=== PATIENT | male | born 1995 | race Caucasian/White ===

== ENCOUNTER 2016-11-26 18:37 | Emergency (ER) | payer OTHER ==
[~2016-11-26] VITALS: Ht 182.9 cm; Wt 89.8 kg
== END 2016-11-26 19:21 | disposition home or self-care (01) ==
LOC: ED 18:37
DX: Z20.2 Contact with and (suspected) exposure to infections with a predominantly sexual mode of transmission (principal); F41.9 Anxiety disorder, unspecified; F17.200 Nicotine dependence, unspecified, uncomplicated
CPT/HCPCS: 87491; 87591; 99283

== ENCOUNTER 2017-02-26 00:06 | Inpatient (IN) | payer OTHER ==
[~2017-02-26] VITALS: Ht 182.9 cm; Wt 88.1 kg
--- NOTE | 2017-02-26 21:25 | HP ---
[facility] [address], [place] [address] Signed ADMISSION DATE: 02/26/2017 REASON FOR ADMISSION: Acute appendicitis. 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 Yesterday morning, he began having vague abdominal pain, which worsened migrating to the right lower abdomen. By the end of the evening last night when getting ready to "close down," his pain became unbearable and on that basis, he left work and presented to the emergency room, where he was evaluated by Dr. Levine. He was found to have tenderness in the right lower abdomen and an elevated white count of 14.2, and findings highly consistent with appendicitis. I was called by Dr. Levine about this and we conferred and he ultimately underwent a CT scan of the abdomen, which confirmed acute appendicitis. He was admitted for further evaluation and care. PAST MEDICAL HISTORY: Unremarkable. He has never had operation in the past. He takes no medications daily. He has no known drug allergies. FAMILY HISTORY: Notable for a younger brother who had appendicitis, which was perforated and ultimately required transfer from [place] to [place], [place] for further management. He notes that his brother was far more ill than he is at present. 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 He lives on [address] in [place]. He is unmarried. His point of contact is his father, Alfonso Quintanilla. REVIEW OF SYSTEMS: He denies any shortness of breath or chest pain. He has had no dysphagia, dysuria. Denies any hematemesis or blood per rectum. PHYSICAL EXAMINATION: GENERAL: A robust appearing man who looks to be nontoxic. Trachea is midline. Mucous membranes are slightly dry. CHEST: Clear. HEART: Regular without murmur. Electronically Signed By: YVAN LYNN MD 02/26/17 0582 PATIENT NAME: THADDEUS QUINTANILLA HISTORY AND PHYSICAL DATE OF : [birth year] PHYSICIAN: YVAN LYNN MD REPORT #: [id number] REPORT IS CONFIDENTIAL AND NOT TO BE RELEASED WITHOUT AUTHORIZATION [facility] [address], [place] [address] Signed ABDOMEN: Nondistended and soft. Rovsing sign is negative. There is tenderness in McBurney point. EXTREMITIES: Show no clubbing, cyanosis, or edema. LABORATORY STUDY: Show white count of 14.2, hematocrit 44.2, and platelets 278,000. Chem profile shows a potassium of 3.5. Liver enzymes normal. Lipase 13. Urinalysis shows specific gravity of 1.033, otherwise normal. I reviewed the CT scan myself. The coronal view is most demonstrative of appendicitis. ASSESSMENT: The patient has acute appendicitis, not apparently perforated. He needs additional fluid resuscitation and appendectomy. We discussed nonoperative methods, which I would not recommend. The risks of bleeding, infection, need for drain, need for possible open procedure. All reviewed in detail. He understands and wished to proceed. We will plan to do this today. MD DEDE Doss/KRISHANL /[id number] cc: Stephanie Levine MD Electronically Signed By: YVAN LYNN MD 02/26/17 2125 PATIENT NAME: THADDEUS QUINTANILLA HISTORY AND PHYSICAL DATE OF : [birth year] PHYSICIAN: VYAN LYNN MD REPORT #: [id number] REPORT IS CONFIDENTIAL AND NOT TO BE RELEASED WITHOUT AUTHORIZATION
--- NOTE | 2017-02-26 21:25 | OR ---
[facility] [address], [place] [address] Signed DATE OF OPERATION: 02/26/2017 SURGEON: Yvan Lynn MD PREOPERATIVE DIAGNOSIS: Acute appendicitis. POSTOPERATIVE DIAGNOSIS: Acute suppurative appendicitis. PROCEDURE: Laparoscopic appendectomy. ANESTHESIA: General endotracheal, Yvan Hull CRNA and local 10 mL of 0.25% Marcaine with epinephrine. INDICATION: This 21-year-old white man began having lower abdominal pain yesterday at approximately 8 in the morning. This progressed until his presentation in the emergency room last night. He was evaluated by Dr. Levine and thought to have appendicitis. A CT scan of the abdomen confirmed this finding. No sign of abscess or perforation. He has been fluid resuscitated, given intravenous antibiotics, and is at this time to undergo appendectomy preferred by a laparoscopic approach. The risks of bleeding, infection, need for open procedure, failure to cure the problem, and other unforeseen complications were reviewed in detail. He understands and wished to proceed. FINDINGS: Indeed the appendix was quite inflamed, there was a fair amount of purulent exudate, but no abscess was formed. A complete appendectomy was performed without problem. The appendix was transected and flushed to the cecum. Additionally, noted was gallbladder had some adhesions to it, but not acutely inflamed. The terminal ileum and colon appeared normal. DESCRIPTION OF PROCEDURE: The patient was brought to the operating room, given a general endotracheal anesthetic. Preoperative antibiotic Zosyn had been given previously, Ancef. Sequential compression device stockings were used and heparin subcutaneously administered. After satisfactory general endotracheal anesthesia, a Mead catheter was placed. The abdomen was clipped and prepared with chlorhexidine solution and draped sterilely. An infraumbilical Electronically Signed By: YVAN LYNN MD 02/26/17 2125 PATIENT NAME: THADDEUS QUINTANILLA OPERATIVE REPORT DATE OF : [birth year] PHYSICIAN: YVAN LYNN MD REPORT #: [id number] REPORT IS CONFIDENTIAL AND NOT TO BE RELEASED WITHOUT AUTHORIZATION [facility] [address], [place] [address] Signed incision was made and using an open John cannula technique, pneumoperitoneum was achieved at level 14 mmHg of carbon dioxide gas. Intraabdominal inspection showed no sign of ascites or carcinomatosis. The appendix was not visualized at this time. A 12 mm epigastric port was then placed and a camera was placed to that site. Single hand manipulation of the right lower abdominal contents with the assistance of table manipulation including the [id number] ultimately revealed the tip of the appendix, which was noted to be matted somewhat laterally. A 5 mm right lower quadrant trocar was placed under direct visualization allowing for 2-hand manipulation ultimately delivering well the terminal ileum and the cecum. The appendix was suppurative and inflamed. The mesoappendix was thickened. The appendix was elevated and a window created between the appendix and the mesoappendix and a window created more fully with laparoscopic device. Initially, it was planned to transect the appendix flushed with the cecum, however, a small tear in the mesoappendix allowed for arterial bleeding on that basis, it was quickly secured by grasping and the stapling device then passed through the mesoappendix, transecting it completely allowing for complete hemostasis. Then, now skeletonized appendix was transected and flushed with the cecum using an Endo-LANNY stapling device as well. Appendix was withdrawn through the infraumbilical port site and passed for pathology. Irrigation was undertaken on the staple lines of the mesoappendix and the cecum, both were hemostatic. Excess irrigation fluid was suctioned free from the upper abdomen and lower abdomen. Plans made for closure. On inspection, first, however, the terminal ileum confirmed to be normal. The liver was normal. The gallbladder had mild chronic inflammation and some adhesions to it, but not acutely inflamed at all. The trocars were removed and the infraumbilical fascial incision was reapproximated with interrupted 0 Vicryl suture. All wounds were copiously irrigated with saline solution and skin closed with interrupted 3-0 Vicryl. Steri-Strips were applied. The patient was ultimately extubated and transferred to recovery room in good condition, having suffered no complications. Sponge, needle, and counts were reported as correct x3. Yvan Lynn MD /[facility] [place] /[id number] Electronically Signed By: YVAN LYNN MD 02/26/17 2125 PATIENT NAME: THADDEUS QUINTANILLA OPERATIVE REPORT DATE OF : [birth year] PHYSICIAN: YVAN LYNN MD REPORT #: [id number] REPORT IS CONFIDENTIAL AND NOT TO BE RELEASED WITHOUT AUTHORIZATION [address] [address] Signed cc: Stephanie Levine MD Electronically Signed By: YVAN LYNN MD 02/26/17 2125 PATIENT NAME: THADDEUS QUINTANILLA OPERATIVE REPORT DATE OF : [birth year] PHYSICIAN: YVAN LYNN MD REPORT #: [id number] REPORT IS CONFIDENTIAL AND NOT TO BE RELEASED WITHOUT AUTHORIZATION
[2017-02-27] MEDS ORDERED: IBUPROFEN600 MG PO (16:06)
[2017-02-27] MEDS ORDERED: OXYCODON-ACETA1 EAC2 PO (16:07)
== END 2017-02-27 17:50 | disposition home or self-care (01) | DRG 340 ==
LOC: ED 00:06 → MS 02:25
PROVIDERS: ADMIT Surgery
PROC: 0DTJ4ZZ Resection of Appendix, Percutaneous Endoscopic Approach (ICD-10-PCS; principal; 2017-02-26 15:00)
DX: K35.2 Acute appendicitis with generalized peritonitis (principal)
CPT/HCPCS: 00840; 74177; 80053; 81001; 83690; 85025; 96361; 96372; 96374; 96375; 96376; 99285; G0378; J0330; J0690; J0694; J1100; J1170; J1644; J1885; J2250; J2405; J2543; J2704; J2710; J2765; J3010; J7030; J7120; Q9967

== ENCOUNTER 2024-11-10 09:23 | Emergency (ER) | payer BC ==
[~2024-11-10] VITALS: Ht 182.9 cm; Wt 88.0 kg
[~2024-11-10 09:23] MED LIST: IBUPROFEN600 MG PO; OXYCODON-ACETA1 EAC2 PO
--- OUTSIDE RECORDS SUMMARY | 2024-11-10 09:29 | XMS ---
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 Su has no Care Guidelines for this patient. [facility] VISIT COUNT (12 MO.) 1 SWETHA [place] TOTAL 1 NOTE: Visits indicate total known visits. ED/C VISIT TRACKING (12 MO.) 11/10/2024 09:23 SWETHA [place] TYPE: Emergency COMPLAINT: - BACK PAIN INPATIENT VISIT TRACKING (12 MO.) No inpatient visits to display in this time frame [email or web address]
[2024-11-10 10:00] VITALS: BP 126/71
== END 2024-11-10 10:02 | disposition home or self-care (01) ==
LOC: ED 09:23
DX: M54.50 Low back pain, unspecified (principal); F17.200 Nicotine dependence, unspecified, uncomplicated
CPT/HCPCS: 99283